=== PATIENT | male | born 1960 | race Caucasian/White ===

== ENCOUNTER 2017-03-28 12:20 | Emergency (ER) | payer MEDICAID, OTHER ==
[~2017-03-28] VITALS: Ht 177.8 cm; Wt 76.8 kg
[2017-03-28 12:54] LABS: DAU SCREEN DISCLAIMER
[2017-03-28 13:20] LABS: HEMATOCRIT 38.5 % (39.2-51.8); HEMOGLOBIN 12.8 g/dL (13.7-18.0)
[2017-03-28] MEDS ORDERED: BACITRACIN ZINC OINT 500U/GM, 0.9 GM ONE ×2 (13:22)
[2017-03-28 13:30] LABS: BLOOD UREA NITROGEN 11 mg/dL (7-18)
[2017-03-28 13:32] LABS: ACETAMINOPHEN < 2 mcg/mL (10-30)
[2017-03-28] MEDS ORDERED: NS + 40MEQ KCL 1,000 ML IV ONE ×2 (14:08→14:14)
[2017-03-28] MEDS ORDERED: POTASSIUM CHLORIDE 20 MEQ TAB.ER.PRT ONE (14:15)
[2017-03-28] MEDS ORDERED: POTASSIUM CHLORIDE 20 MEQ TAB.ER.PRT PO ONE (14:30)
[2017-03-28] MEDS ORDERED: LORazepam 2 MG/ML, 1ML ONE ×2 (16:55→18:41)
[2017-03-28] MEDS ORDERED: LORazepam 2 MG/ML, 1ML IVPush ONE ×2 (18:00→19:00)
[2017-03-28 20:24] VITALS: BP 130/97
== END 2017-03-28 21:39 | disposition home or self-care (01) ==
LOC: ED 17:22
DX: F32.9 Major depressive disorder, single episode, unspecified (principal); F10.239 Alcohol dependence with withdrawal, unspecified; F10.229 Alcohol dependence with intoxication, unspecified
CPT/HCPCS: 36415; 80048; 80307; 80329; 82040; 85025; 96365; 96366; 96375; 96376; 99285; J2060; J3480; G0479; G0480

== ENCOUNTER 2017-03-30 11:20 | Emergency (ER) | payer MEDICAID, OTHER ==
[~2017-03-30] VITALS: Ht 177.8 cm; Wt 79.0 kg
[2017-03-30 11:36] VITALS: BP 132/86
== END 2017-03-30 12:53 | disposition home or self-care (01) ==
LOC: ED 12:15
DX: R20.2 Paresthesia of skin (principal); F10.220 Alcohol dependence with intoxication, uncomplicated; Z59.0 Homelessness
CPT/HCPCS: 70450; 99284

== ENCOUNTER 2018-12-25 16:53 | Emergency (ER) | payer SELFPAY ==
[~2018-12-25] VITALS: Ht 177.8 cm; Wt 82.0 kg
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
[2018-12-25] MEDS ORDERED: SERTRALINE (17:02)
[2018-12-25 18:59] VITALS: BP 125/82
--- NOTE | 2018-12-25 18:59 | NUR ---
LATE ENTRY FOR 1800; PT SLEEPING ON GURNEY. NO ACUTE DISTRESS NOTED. WILL CONTINUE TO MONITOR
--- NOTE | 2018-12-25 18:59 | NUR ---
LATE ENTRY FOR 1830; Patient/Caregiver given discharge instructions and they have confirmed that they understand the instructions. Patient ambulatory with steady gait. PT LEFT WITH ALL PERSONAL BELONGINGS.
== END 2018-12-25 19:02 | disposition home or self-care (01) ==
LOC: ED 18:35
DX: F10.220 Alcohol dependence with intoxication, uncomplicated (principal)
CPT/HCPCS: 99283

== ENCOUNTER 2021-01-17 10:04 | Emergency (ER) | payer MEDICAID ==
[~2021-01-17] VITALS: Ht 177.8 cm; Wt 85.0 kg
[~2021-01-17 10:04] MED LIST: SERTRALINE
[2021-01-17 10:07] VITALS: BP 126/90
--- NOTE | 2021-01-17 10:19 | NUR ---
SEE TRIAGE. PT DENIES SI, HI, AH, VH. PT STATES HE WOULD LIKE DETOX BUT ALSO STATES HE HAS AND WILL LEAVE VOLUNTARY REHAB/DETOX PROGRAMS. ERP REVIEWS POC, DISCUSSES PTS OPTIONS. CALL LIGHT WITHIN REACH, WARM BLANKET PROVIDED.
--- NOTE | 2021-01-17 12:02 | NUR ---
ROUNDED ON PT, PT NOT IN ROOM. POST PARTUM NURSE AND ERP NOTIFIED.
== END 2021-01-17 12:05 | disposition left against medical advice (07) ==
LOC: ED 11:40
DX: F10.120 Alcohol abuse with intoxication, uncomplicated (principal); F33.9 Major depressive disorder, recurrent, unspecified; R45.851 Suicidal ideations; Y90.0 Blood alcohol level of less than 20 mg/100 ml; I10 Essential (primary) hypertension
CPT/HCPCS: 99283